=== PATIENT | female | born 2005 | race Caucasian/White ===

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

== ENCOUNTER 2024-04-01 09:45 | Emergency (ER) | payer BC, MEDICAID ==
[2024-04-01 10:27] LABS: BASOPHILS ABSOLUTE AUTO 0.03 K/uL (0.00-0.20); BASOPHILS PERCENT AUTO 0.3 % (0.0-2.0); EOSINOPHILS ABSOLUTE AUTO 0.25 K/uL (0.00-0.50); EOSINOPHILS PERCENT AUTO 2.2 % (0.0-5.0); HEMATOCRIT 44.3 % (34.0-46.0); IMMATURE GRAN ABSOLUTE AUTO 0.02 10^3/uL (0.00-0.50); IMMATURE GRAN PERCENT AUTO 0.2 % (0.0-5.0); LYMPHOCYTES ABSOLUTE AUTO 2.95 K/uL (0.50-3.50); LYMPHOCYTES PERCENT AUTO 26.2 % (10.0-50.0); MEAN CORPUSCULAR HEMOGLOBIN 27.8 pg (28.2-33.3); MEAN CORPUSCULAR HGB CONC 33.9 g/dL (31.7-36.0); MONOCYTES ABSOLUTE AUTO 0.65 K/uL (0.00-1.00); MONOCYTES PERCENT AUTO 5.8 % (2.0-14.0); NEUTROPHILS ABSOLUTE AUTO 7.36 K/uL (1.40-7.00); NEUTROPHILS PERCENT AUTO 65.3 % (45.0-80.0); PLATELET COUNT,PLT 271 K/uL (150-350); WHITE BLOOD CELL COUNT,WBC 11.3 K/uL (4.0-10.2)
[2024-04-01 10:41] LABS: CALCIUM 9.3 mg/dL (8.5-10.1); CREATININE 0.64 mg/dL (0.51-1.17); EST CRCL DRUG DOSING (CG) 115.02 mL/min; POTASSIUM,K 4.1 mmol/L (3.5-5.1)
[2024-04-01 10:53] LABS: APPEARANCE,URINE SLIGHTLY CLOUDY; BILIRUBIN,URINE NEGATIVE (NEGATIVE); COLOR,URINE YELLOW; GLUCOSE,URINE NEGATIVE (NEGATIVE); KETONES,URINE NEGATIVE (NEGATIVE); LEUKOCYTE ESTERASE,URINE NEGATIVE (NEGATIVE); NITRITE,URINE NEGATIVE (NEGATIVE); OCCULT BLOOD,URINE NEGATIVE (NEGATIVE); PH,URINE 6.5 (5.0-9.0); PROTEIN,URINE NEGATIVE (NEGATIVE); UROBILINOGEN,URINE 0.2 E.U./dL (0.2-1.0)
== END 2024-04-01 11:04 | disposition home or self-care (01) ==
LOC: LL.ED 09:45
DX: M54.42 Lumbago with sciatica, left side (principal); J45.909 Unspecified asthma, uncomplicated; E66.9 Obesity, unspecified; F17.210 Nicotine dependence, cigarettes, uncomplicated; Z88.9 Allergy status to unspecified drugs, medicaments and biological substances; Z79.899 Other long term (current) drug therapy; Z68.41 Body mass index [BMI] 40.0-44.9, adult
CPT/HCPCS: 36415; 72100; 80048; 81003; 83735; 85025; 99283

== ENCOUNTER 2024-11-27 16:06 | Emergency (ER) | payer MEDICAID ==
[2024-11-27] MEDS: Ondansetron 4 MG Tab.DIS PO ONE (16:16)
[2024-11-27] MEDS: Ketorolac 30 MG/ML SDV IM ONE (17:03)
== END 2024-11-27 17:20 | disposition home or self-care (01) ==
LOC: LL.ED 16:06
DX: B34.9 Viral infection, unspecified (principal); E66.9 Obesity, unspecified; Z91.09 Other allergy status, other than to drugs and biological substances; Z79.899 Other long term (current) drug therapy
CPT/HCPCS: 96372; 99283; A9270; J1885